=== PATIENT | male | born 1985 | race African-American/Black ===

== ENCOUNTER 2016-07-06 21:13 | Emergency (ER) | payer SELFPAY ==
--- NOTE | ~2016-07-06 | CR127 ---
[facility] A Service of [facility] RADIOLOGY TEXT RESULTS PATIENT: MIRI MANCINI LOCATION: [facility] : 81 UNIT #: [id number] AGE: [address]: Tory Bradford MD SEX: M ORDER DR: [id number] [facility] [address] [place], [place] [address] [id number] MR#: [id number] Acc #: [id number] NAME: MIRI MANCINI : 1985 SEX: M STUDY DATE/TIME: 07/07/2016 1:14 UNIT: [facility] ROOM: STUDY DESCRIPTION: CR Foot Complete Min 3 View Rt Attending Physician: Tory Bradford M.D. Ordering Physician: Tory Bradford M.D. Primary Care Physician: No Primary Care Physician MEDICAL IMAGING REPORT This report is preliminary unless electronic signature is present EXAM Right foot HISTORY Right great toe dislocation. FINDINGS 3 views of the right great toe compared to 07/06/2016. There has been interval reduction of the first metatarsophalangeal joint. No fractures are identified. There is a suspected fracture of the second and third metatarsal heads. IMPRESSION 1. Interval reduction of the first metatarsophalangeal joint. No fracture of the first digit is identified. 2. As mentioned on the prior exam, there is suspected fractures of the second and third metatarsal heads. Dictated by... Mik Jaramillo M.D. THIS IS AN ELECTRONICALLY VERIFIED REPORT Mik Jaramillo M.D. at 07/08/2016 12:02 AM ELIJAH/meri TD: 07/07/2016 03:16 JOB #: [id number] MEDICAL IMAGING REPORT Page 1 of 1 COPY
--- NOTE | ~2016-07-06 | CR127 ---
[facility] A Service of [facility] RADIOLOGY TEXT RESULTS PATIENT: MIRI MANCINI LOCATION: [facility] : 81 UNIT #: [id number] AGE: [address]: Tory Bradford MD SEX: M ORDER DR: [id number] [facility] [address] [place], [place] [address] [id number] E MR#: [id number] Acc #: [id number] NAME: MIRI MANCINI : 1985 SEX: M STUDY DATE/TIME: 07/06/2016 22:12 UNIT: [facility] ROOM: STUDY DESCRIPTION: CR Foot Complete Min 3 View Rt Attending Physician: Tory Bradford M.D. Ordering Physician: Tory Bradford M.D. Primary Care Physician: No Primary Care Physician MEDICAL IMAGING REPORT This report is preliminary unless electronic signature is present EXAM Right foot INDICATIONS Tripped between 2 logs.. Right foot pain swelling and bruising. FINDINGS 3 views of the right foot without comparison. The first metatarsophalangeal joint is dislocated. There is a full shaft width superior displacement of the proximal phalanx in relation to the first metatarsal. There is displacement of the sesamoid bones. No obvious fractures identified however post reduction radiographs are recommended. There is questionable fractures of the distal second and third metatarsal heads. Correlate for point tenderness in this region. IMPRESSION 1. Dorsally dislocated first metatarsophalangeal joint. No fracture is clearly identified, however, post reduction radiographs are recommended. 2. Possible fractures of the distal second and third metatarsal heads. These are nondisplaced and do not appear to extend into the articular surface. Please confirm with point tenderness in this region. Dictated by... Mik Jaramillo M.D. THIS IS AN ELECTRONICALLY VERIFIED REPORT Mik Jaramillo M.D. at 07/06/2016 11:10 PM RPOsmany/meri TD: 07/06/2016 23:05 JOB #: [id number] [facility] A Service of [facility] RADIOLOGY TEXT RESULTS PATIENT: MIRI MANCINI LOCATION: [facility] : 81 UNIT #: [id number] AGE: [address]: Tory Bradford MD SEX: M ORDER DR: MEDICAL IMAGING REPORT Page 1 of 1 COPY
[~2016-07-06 21:13] MED LIST: BENADRYL25 MG PO; HYDROCORTISONE30 G2 EXT; KEFLEX; KEFLEX500 MG PO
== END 2016-07-07 02:30 | disposition home or self-care (01) ==
LOC: CED 21:13 → CFTX 22:27 → CED 07-07 02:30
DX: S93.121A Dislocation of metatarsophalangeal joint of right great toe, initial encounter (principal); W01.0XXA Fall on same level from slipping, tripping and stumbling without subsequent striking against object, initial encounter
CPT/HCPCS: 29515; 73630; 96374; 96375; 96376; 99284; J2060; J2270; J2405